=== PATIENT | female | born 1985 | race Caucasian/White ===

== ENCOUNTER 2017-09-26 21:06 | Emergency (ER) | payer SELFPAY ==
[2017-09-26 22:01] LABS: Urine Blood 3+ (NEG); Urine Glucose 2+ (NEG); Urine Protein 1+ (NEG); Urine Specific Gravity 1.025 (1.005-1.030); Urine pH 5.5 (5.0-7.0)
[2017-09-26 22:20] LABS: Absolute Lymphocytes (CBC) 2.6 K/uL (0.7-4.9); Absolute Monocytes 0.3 K/uL (0.1-1.3); Absolute Neutrophil 7.7 K/uL (1.8-8.0); Basophils % 0.2 % (0-1.3); Eosinophils % 0.8 % (0-4.4); Hematocrit 37.6 % (36.0-45.0); Lymphocytes % 24.4 % (15.3-44.8); MCH 27.3 pg (27.0-35.0); MCV 80.8 fL (80-100); MPV 8.4 fL (7.6-11.3); Monocytes % 2.9 % (3.3-12.3); RBC Red Blood Cell Count 4.65 M/uL (3.86-4.86)
[2017-09-26 22:35] LABS: Potassium 3.8 mmol/L (3.5-5.1)
--- NOTE | 2017-09-26 23:52 | ER ---
Nurse's Notes [facility] Name: Sugar Christopher Age: 32 yrs Sex: Female : 1985 Arrival Date: 09/26/2017 Time: 21:11 Bed 19 Private MD: Diagnosis: Abnormal uterine and vaginal bleeding, unspecified Presentation: 09/26 21:32 Presenting complaint: Patient states: "I have been bleeding with clots since Sunday bs1 afternoon, and my friends say that might be a miscarriage, I have not taken a test, I am very irregular with my cycle so I don't know when my last menstrual was". Transition of care: patient was not received from another setting of care. Onset of symptoms was September 23, 2017. Risk Assessment: Do you want to hurt yourself or someone else? Patient reports no desire to harm self or others. Initial Sepsis Screen: Does the patient meet any 2 criteria? HR > 90 bpm. Does the patient have a suspected source of infection? No. Patient's initial sepsis screen is negative. Care prior to arrival: None. 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 - Social history:: Smoking status: Patient/guardian denies using tobacco. - Ebola Screening: : Patient negative for fever greater than or equal to 101.5 degrees Fahrenheit, and additional compatible Ebola Virus Disease symptoms Patient denies exposure to infectious person. Screenin:17 Abuse screen: Denies threats or abuse. Denies injuries from another. Nutritional bs1 screening: No deficits noted. Tuberculosis screening: No symptoms or risk factors identified. Fall Risk None identified. Assessment: 21:44 General: Appears in no apparent distress. uncomfortable, Behavior is cooperative, bs1 anxious, crying. Pain: Complains of pain in bilateral lower abdomen/suprapubic area Pain does not radiate. Neuro: Level of Consciousness is awake, alert, obeys commands, Oriented to person, place, time, situation, Appropriate for age. Cardiovascular: Denies chest pain, shortness of breath, Heart tones S1 S2 present Capillary refill < 3 seconds Patient's skin is warm and dry. Respiratory: Airway is patent Trachea midline Respiratory effort is even, unlabored, Respiratory pattern is regular, symmetrical, Breath sounds are clear bilaterally. GI: Abdomen is round non-distended, Bowel sounds present X 4 quads. Abdomen is tender to palpation in suprapubic area, right lower quadrant and left lower quadrant Reports lower abdominal pain. : Reports urgency, vaginal bleeding that is with clots, heavy flow. EENT: No signs and/or symptoms were reported regarding the EENT system. Derm: Skin is intact, Skin is pink, warm \\T\\ dry. normal. Musculoskeletal: Circulation, motion, and sensation intact. Capillary refill < 3 seconds, Range of motion: intact in all extremities. 22:30 Reassessment: No changes from previously documented assessment. Patient and/or family bs1 updated on plan of care and expected duration. Pain level reassessed. Patient is alert, oriented x 3, equal unlabored respirations, skin warm/dry/pink. Informed patient about POC/pending lab work. 09/27 00:15 Reassessment: Patient appears in no apparent distress at this time. Patient and/or bs1 family updated on plan of care and expected duration. Pain level reassessed. Patient is alert, oriented x 3, equal unlabored respirations, skin warm/dry/pink. Informed patient of discharge instructions. Patient states understanding of POC. Vital Signs: 09/26 21:35 BP 127 / 72; Pulse 91; Resp 17; Temp 98.7(O); Pulse Ox 98% on R/A; Weight 95.25 kg; bs1 Height 5 ft. 6 in. (167.64 cm); Pain 4/10; 22:35 BP 128 / 68; Pulse 89; Resp 16; Pulse Ox 99% on R/A; bs1 23:35 BP 126 / 74; Pulse 88; Resp 17; Pulse Ox 100% on R/A; bs1 09/27 00:15 BP 125 / 62; Pulse 79; Resp 16; Temp 98.3(O); Pulse Ox 100% ; Pain 3/10; bs1 09/26 21:35 Body Mass Index 33.89 (95.25 kg, 167.64 cm) bs1 Vitals: 08 22:16 Heart Tones unable to assess/ UPT negative. bs1 ED Course: 21:11 Patient arrived in ED. es 21:15 Laura Collazo RN is Primary Nurse. bs1 21:15 Prabhjot Urbina NP is PHCP. pm1 21:15 Shaun Lau MD is Attending Physician. pm1 21:34 Triage completed. bs1 22:08 Inserted saline lock: 22 gauge in right antecubital area, using aseptic technique. bs1 Blood collected. 22:17 Patient has correct armband on for positive identification. Bed in low position. Call bs1 light in reach. Side rails up X 1. Pulse ox on. NIBP on. 22:17 Arm band placed on left wrist. bs1 23:51 Pranav Horton MD is Referral Physician. pm1 08/ 00:35 No provider procedures requiring assistance completed. IV discontinued, bleeding bs1 controlled, No redness/swelling at site. Pressure dressing applied. Administered Medications: 00:10 Drug: Burnett 5 mg-325 mg 1 tabs Route: PO; bs1 00:38 Follow up: Response: No adverse reaction bs1 00:10 Drug: Zofran 4 mg Route: PO; bs1 00:38 Follow up: Response: No adverse reaction bs1 Point of Care Testing: Urine : 09/26 22:17 hCG Reading: Negative; Control Reading: Positive; bs1 Outcome: 23:51 Discharge ordered by MD. pm1 08/ 00:35 Discharged to home with family. bs1 Condition: stable Discharge instructions given to patient, Instructed on discharge instructions, follow up and referral plans. medication usage, Demonstrated understanding of instructions, follow-up care, medications, Prescriptions given X 2. 00:39 Patient left the ED. bs1 Signatures: Ashley Marcos Patrick, NP POLITICAL AIDE pm1 Laura Collazo RN RN bs1 Corrections: (The following items were deleted from the chart) 00:37 08/ 21:35 BP 127 / 72; Pulse 91bpm; Resp 17bpm; Pulse Ox 98% RA; Temp 98.7F Oral; bs1 Pain 4/10; bs1
--- NOTE | 2017-09-26 23:52 | EDPHYS ---
Physician Documentation [facility] Name: Sugar Christopher Age: 32 yrs Sex: Female : 1985 Arrival Date: 09/26/2017 Time: 21:11 Bed 19 Private MD: ED Physician Shaun Lau HPI: 09/26 22:00 This 32 yrs old Female presents to ER via Ambulatory with complaints of pm1 Vaginal Bleeding. 22:00 The patient presents to the emergency department with vaginal bleeding, with clots. pm1 Associated signs and symptoms: Pertinent positives: Abdominal cramping, Pertinent negatives: chest pain, dysuria, fever, frequency, shortness of breath, vaginal discharge. The patient has experienced similar episodes in the past, multiple times, Patient with irregular menses with occasionally occurring every 2 weeks. The patient has not recently seen a physician. Patient has taken tests at home and they are negative. 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 - Social history:: Smoking status: Patient/guardian denies using tobacco. - Ebola Screening: : Patient negative for fever greater than or equal to 101.5 degrees Fahrenheit, and additional compatible Ebola Virus Disease symptoms Patient denies exposure to infectious person. ROS: 22:00 Constitutional: Negative for fever, chills, and weight loss, Eyes: Negative for injury, pm1 pain, redness, and discharge, ENT: Negative for injury, pain, and discharge, Neck: Negative for injury, pain, and swelling, Cardiovascular: Negative for chest pain, palpitations, and edema, Respiratory: Negative for shortness of breath, cough, wheezing, and pleuritic chest pain. 22:00 Back: Negative for injury and pain, MS/Extremity: Negative for injury and deformity. 22:00 Skin: Negative for injury, rash, and discoloration, Neuro: Negative for headache, weakness, numbness, tingling, and seizure. 22:00 Abdomen/GI: Positive for abdominal cramps, of the suprapubic area. 22:00 : Positive for vaginal bleeding, Negative for urinary symptoms, flank pain. Exam: 22:00 Constitutional: This is a well developed, well nourished patient who is awake, alert, pm1 and in no acute distress. Head/Face: Normocephalic, atraumatic. Neck: Trachea midline, no thyromegaly or masses palpated, and no cervical lymphadenopathy. Supple, full range of motion without nuchal rigidity, or vertebral point tenderness. No Meningismus. Chest/axilla: Normal chest wall appearance and motion. Nontender with no deformity. No lesions are appreciated. Cardiovascular: Regular rate and rhythm with a normal S1 and S2. No gallops, murmurs, or rubs. Normal PMI, no JVD. No pulse deficits. Respiratory: Lungs have equal breath sounds bilaterally, clear to auscultation and percussion. No rales, rhonchi or wheezes noted. No increased work of breathing, no retractions or nasal flaring. Abdomen/GI: Soft, non-tender, with normal bowel sounds. No distension or tympany. No guarding or rebound. No evidence of tenderness throughout. Back: No spinal tenderness. No costovertebral tenderness. Full range of motion. Skin: Warm, dry with normal turgor. Normal color with no rashes, no lesions, and no evidence of cellulitis. MS/ Extremity: Pulses equal, no cyanosis. Neurovascular intact. Full, normal range of motion. 22:00 Neuro: Orientation: is normal, Motor: is normal, moves all fours. Vital Signs: 21:35 BP 127 / 72; Pulse 91; Resp 17; Temp 98.7(O); Pulse Ox 98% on R/A; Weight 95.25 kg; bs1 Height 5 ft. 6 in. (167.64 cm); Pain 4/10; 22:35 BP 128 / 68; Pulse 89; Resp 16; Pulse Ox 99% on R/A; bs1 23:35 BP 126 / 74; Pulse 88; Resp 17; Pulse Ox 100% on R/A; bs1 09/27 00:15 BP 125 / 62; Pulse 79; Resp 16; Temp 98.3(O); Pulse Ox 100% ; Pain 3/10; bs1 09/26 21:35 Body Mass Index 33.89 (95.25 kg, 167.64 cm) bs1 MDM: 09/26 21:15 Patient medically screened. pm1 23:50 Data reviewed: vital signs. Data interpreted: Pulse oximetry: on room air is 98 %. pm1 Interpretation: normal. Counseling: I had a detailed discussion with the patient and/or guardian regarding: the historical points, exam findings, and any diagnostic results supporting the discharge/admit diagnosis. 09/26 21:16 Order name: Basic Metabolic Panel; Complete Time: 22:38 pm1 09/26 21:16 Order name: CBC with Diff; Complete Time: 22:38 pm1 09/26 21:45 Order name: Urine Dipstick--Ancillary (enter results); Complete Time: 22:38 ms 09/26 21:45 Order name: Urine --Ancillary (enter results); Complete Time: 22:38 ms 09/26 21:16 Order name: Urine Test (obtain specimen); Complete Time: 21:44 pm1 09/26 21:16 Order name: IV Saline Lock; Complete Time: 22:57 pm1 09/26 21:16 Order name: Labs collected and sent; Complete Time: 22:57 pm1 09/26 21:16 Order name: NPO; Complete Time: 21:44 pm1 09/26 21:16 Order name: Urine Dipstick-Ancillary (obtain specimen); Complete Time: 21:44 pm1 Administered Medications: 09/27 00:10 Drug: [place] 5 mg-325 mg 1 tabs Route: PO; bs1 00:38 Follow up: Response: No adverse reaction bs1 00:10 Drug: Zofran 4 mg Route: PO; bs1 00:38 Follow up: Response: No adverse reaction bs1 Point of Care Testing: Urine : 09/26 22:17 hCG Reading: Negative; Control Reading: Positive; bs1 Disposition: 09/27 04:23 Co-signature as Attending Physician, Shaun Lau MD I agree with the assessment and ps1 plan of care. Disposition: 09/26/17 23:51 Discharged to Home. Impression: Abnormal uterine and vaginal bleeding, unspecified. - Condition is Stable. - Discharge Instructions: Abnormal Uterine Bleeding. - Prescriptions for Tylenol- Codeine #3 300-30 mg Oral Tablet - take 2 tablets by ORAL route every 6 hours As needed; 20 tablet. Zofran 4 mg Oral Tablet - take 1 tablet by ORAL route every 12 hours As needed; 20 tablet. - Medication Reconciliation Form, Thank You Letter, Work release form form. - Follow up: Emergency Department; When: As needed; Reason: Worsening of condition. Follow up: Pranav Horton MD; When: 2 - 3 days; Reason: Recheck today's complaints, Continuance of care, Re-evaluation by your physician. - Problem is new. - Symptoms have improved. Signatures: Dispatcher [employer] [facility] Prabhjot Urbina, SMASH PIECER SMASH PIECER pm1 Shaun Lau MD MD ps1 Laura Collazo, RN RN bs1 Corrections: (The following items were deleted from the chart) 09/26 22: 21:16 QUANTITATIVE HCG+C.LAB.BRZ ordered. [facility] : 21:16 ABO/RH TYPING+BB.LAB.BRZ ordered. [facility] 09/27 00:39 09/26 23:51 09/26/2017 23:51 Discharged to Home. Impression: Abnormal uterine and bs1 vaginal bleeding, unspecified. Condition is Stable. Forms are Medication Reconciliation Form, Thank You Letter, Antibiotic Education, Prescription Opioid Use. Follow up: Emergency Department; When: As needed; Reason: Worsening of condition. Follow up: Pranav Horton; When: 2 - 3 days; Reason: Recheck today's complaints, Continuance of care, Re-evaluation by your physician. Problem is new. Symptoms have improved. pm1
[2017-09-27] MEDS ORDERED: ONDANSETRON 4 MG (ODT) TAB ONE (00:10)
[2017-09-27] MEDS ORDERED: HYDROCODONE/APAP 5/325 MG TAB ONE (00:10)
[2017-09-27 00:54] VITALS: O2SAT 100
[2017-09-27 00:56] VITALS: BP 125/62; TEMP 98.3
== END 2017-09-27 00:39 | disposition home or self-care (01) ==
LOC: ER 21:06
DX: N93.9 Abnormal uterine and vaginal bleeding, unspecified (principal)
CPT/HCPCS: 36415; 80048; 81003; 81025; 85025; 99284